=== PATIENT | female | born 1960 | race Caucasian/White ===

== ENCOUNTER 2017-12-16 06:32 | Day surgery (SDC) | payer BC, MEDICARE ==
[~2017-12-16 06:32] MED LIST: Buffered Lidocaine 0.9% SYRIN* 5 ML/SYR SYRINGE INTRADERM ONE
[2017-12-16] MEDS ORDERED: Scopolamine 1.5 mg* PATCH ONE (06:38)
[2017-12-16] MEDS ORDERED: ceFAZolin 2 GM PREMIX (*) 2 GM/50 ML BAG IVPB ONE (06:38)
[2017-12-16] MEDS ORDERED: Ondansetron ODT TAB* 4 MG ONE (06:38)
[2017-12-16] MEDS ORDERED: Dexamethasone IV* 4 MG/ML 1 ML (4 MG) ONE (06:39)
[2017-12-16] MEDS ORDERED: Ondansetron 40 MG VIAL* 2 MG/ML 20 ML VIAL ONE (06:40)
[2017-12-16] MEDS ORDERED: ceFAZolin 1 GM VIAL(*) ONE (06:56)
[2017-12-16] MEDS ORDERED: Bacitracin IV* 50,000 UNITS INJ ONE (06:56)
[2017-12-16] MEDS ORDERED: Gentamicin ADULT (*) 40 MG/ML VIAL ONE (06:56)
[2017-12-16] MEDS ORDERED: Propofol* 10 MG/ML 20 ML BTL IV PUSH ONE (07:33)
[2017-12-16] MEDS ORDERED: Lidocaine 2% MPF* 2 ML VIAL ONE (07:33)
[2017-12-16] MEDS ORDERED: fentaNYL* 50 MCG/ML 2 ML VIAL (100 MCG VIAL) ONE ×2 (07:33→12:22)
[2017-12-16] MEDS ORDERED: Acetaminophen TAB* 325 MG PO PRN (11:18)
[2017-12-16] MEDS ORDERED: oxyCODONE TAB* 5 MG TAB PO PRN (11:18)
[2017-12-16] MEDS ORDERED: DiMENhydriNATE IV* 50 MG/ML VIAL IV PUSH PRN (11:18)
[2017-12-16] MEDS ORDERED: Ondansetron INJ* 2 MG/ML VIAL IV PRN (11:18)
[2017-12-16] MEDS ORDERED: Naloxone* 0.4 MG/ML 1 ML VIAL IV PRN (11:18)
[2017-12-16] MEDS ORDERED: fentaNYL* 50 MCG/ML 2 ML VIAL (100 MCG VIAL) IV PRN (11:18)
[2017-12-16] MEDS ORDERED: diPHENhydraMINE MDV* 50 MG/ML VIAL ONE (12:14)
[2017-12-16] MEDS ORDERED: Povidone Iodine 5% OPTH* 30 ML BTL ONE (12:42)
[2017-12-16 13:24] VITALS: BP 128/72
== END 2017-12-16 13:25 | disposition home or self-care (01) ==
LOC: OREAST 06:32
PROVIDERS: ATTEND Plastic Surgery
DX: Z41.1 Encounter for cosmetic surgery (principal); J45.909 Unspecified asthma, uncomplicated; F41.9 Anxiety disorder, unspecified; G43.909 Migraine, unspecified, not intractable, without status migrainosus
CPT/HCPCS: A9270-GY; J0690; J1100; J1200; J1580; J2405; J2704; J3010

== ENCOUNTER → 2019-03-16 09:36 | Day surgery (SDC) | payer BC, MEDICARE ==
[~2019-03-16 09:36] MED LIST changes: -Buffered Lidocaine 0.9% SYRIN* 5 ML/SYR SYRINGE INTRADERM ONE; +Buffered Lidocaine 1% SYRIN* 1 ML/SYRINGE INTRADERM ONE; +Bupivacaine 0.25% SDV PF* 10 ML VIAL INJ ONE; +Dexamethasone IV* 4 MG/ML 1 ML (4 MG) IV SLOW PU ONE; +Dexamethasone IV* 4 MG/ML 1 ML (4 MG) ONE; +DiMENhydriNATE IV* 50 MG/ML VIAL IV PUSH PRN; +Famotidine IV* 10 MG/ML 2 ML (20 mg) IV ONE; +Famotidine IV* 10 MG/ML 2 ML (20 mg) ONE; +Heparin VIAL(*) 5000 UNITS/ML VIAL (FIVE THOUSAND) ONE; +Lactated Ringers 1000 ML Bag* 1,000 ML IV SCH; +Levalbuterol 0.63MG/3ML NEB* UNIT OF USE INH ONE; +Lidocaine 1% w EPI 1:100,000* MDV 20 ML VIAL ONE; +Lidocaine 2% PF * 5 ML VIAL ONE; +Midazolam* 1 MG/ML 5 ML VIAL (5 MG) ONE; +Naloxone* 0.4 MG/ML 1 ML VIAL IV PRN; +Ondansetron INJ* 2 MG/ML VIAL IV PRN; +Ondansetron INJ* 2 MG/ML VIAL ONE; +Povidone Iodine 5% OPTH* 30 ML BTL ONE; +Propofol* 10 MG/ML 20 ML BTL ONE; +Scopolamine 1.5 mg* PATCH ONE; +ceFAZolin 2 GM in NS PREMIX(*) 2 GM/100 ML BAG IVPB ONE; +fentaNYL* 50 MCG/ML 2 ML VIAL (100 MCG VIAL) IV PRN; +fentaNYL* 50 MCG/ML 5 ML VIAL (250 MCG VIAL) ONE; +oxyCODONE/Acetamin 5/325 MG* TAB ONE
[2019-03-16] MEDS: oxyCODONE/Acetamin 5/325 MG* TAB PO PRN ×2 (14:36→14:37)
[2019-03-16 14:39] VITALS: BP 117/71
== END | disposition home or self-care (01) ==
LOC: OR 09:36
PROVIDERS: ATTEND Plastic Surgery
DX: N63.42 Unspecified lump in left breast, subareolar (principal); N65.1 Disproportion of reconstructed breast; J45.909 Unspecified asthma, uncomplicated; F41.8 Other specified anxiety disorders
CPT/HCPCS: 88307; A9270-GY; A9272-GY; J0690; J1100; J1644; J2250; J2405; J2704; J3010; J3490